=== PATIENT | female | born 1975 | race Caucasian/White ===

== ENCOUNTER 2017-01-08 19:25 | Emergency (ER) | payer SELFPAY ==
[2017-01-08] MEDS ORDERED: Ondansetron 4 MG Tab.DIS PO PRN (20:07)
--- NOTE | 2017-01-08 20:11 | EDM.PDOC ---
ED HPI GENERAL MEDICAL PROBLEM - General Chief Complaint: Abdominal Pain Stated Complaint: SIDE PAIN Time Seen by Provider: 01/08/17 19:59 Source of Information: Reports: Patient, RN Notes Reviewed History Limitations: Reports: No Limitations - History of Present Illness INITIAL COMMENTS - FREE TEXT/NARRATIVE: 41-year-old female presents emergency department day complaint of abdominal pain predominately in the right upper quadrant she's been dealing with this pain on and off for the last 2 months recently had acute appendicitis 2 months ago. She states the pain usually comes and goes it is sharp and stabbing in nature we'll wax and wane however this evening the pain has progressed to the point she is now nausea and vomiting unable to keep pills down. Denies any shortness of breath no other GI symptomatology still still passing gas denies fevers Right Abdominal Pain Score (Numeric/FACES): 8 - Related Data Allergies Allergy/AdvReac Type Severity Reaction Status Date / Time No Known Allergies Allergy Verified 01/08/17 19:51 Home Meds: Home Meds NK [No Known Home Meds] 01/08/17 [History] Past Medical History [employer] History: Reports: Spontaneous - Past Surgical History GI Surgical History: Reports: Appendectomy Social & Family History - Tobacco Use Smoking Status *Q: Never Smoker - Caffeine Use Caffeine Use: Reports: Soda - Recreational Drug Use Recreational Drug Use: No ED ROS GENERAL - Review of Systems Review Of Systems: See Below Constitutional: Denies: Fever, Chills HEENT: Reports: No Symptoms Respiratory: Reports: No Symptoms Cardiovascular: Reports: No Symptoms GI/Abdominal: Reports: Abdominal Pain, Nausea, Vomiting : Reports: Flank Pain Musculoskeletal: Reports: No Symptoms Skin: Reports: No Symptoms Neurological: Reports: No Symptoms ED EXAM, GI/ABD - Physical Exam Exam: See Below Text/Narrative:: General: Female, not in any distress, alert and oriented x3 HEENT: head is atraumatic normocephalic, eyes pupils equal round reactive to light, sclera clear no conjunctivitis appreciated. Ears tympanic membranes clear and mojica landmarks and light reflex are present bilaterally canals are clear. Nose no septal deviation, nares are clear, no blood present. Mouth mucosa is moist and pink no erythema or exudate noted in soft palate, tongue is midline uvula is midline, dentition is intact. Neck: Supple no thyromegaly no tracheal deviation. Nodes: Cervical nodes subclavicular nodes nontender no palpable lymphadenopathy noted. Lungs: clear to auscultation bilaterally with symmetrical respirations, no adventitious noise appreciated. CV: Regular rate and rhythm S1 and S2 appreciated no murmurs rubs or gallops noted. Abdomen: Soft, tender right upper quadrant, no palpable masses or organomegaly appreciated, no distention no guarding bowel sounds are present, . Neuro: Cranial nerves II through XII grossly intact Skin: Warm and dry, intact Extremities: No lower extremity edema appreciated, Course - Vital Signs Last Recorded V/S: Last Vital Signs Temp 97.0 F 01/08/17 19:46 Pulse 91 01/08/17 19:46 Resp 18 01/08/17 19:46 BP 137/54 L 01/08/17 19:46 Pulse Ox 99 01/08/17 19:46 - Orders/Labs/Meds Orders: Active Orders 24 hr Category Date Time Status Ondansetron [Zofran ODT] Med 01/08/17 20:07 Active 4 mg PO ONETIME PRN ED Antiemetic Medication Reflex [OM.PC] Click to Edit Oth 01/08/17 20:07 Ordered Medication Orders Ondansetron HCl (Zofran Odt) 4 mg PO ONETIME PRN PRN Reason: Nausea/Vomiting Last Admin: 01/08/17 20:15 Dose: 4 mg Labs: Laboratory Tests 01/08/17 01/08/17 01/08/17 Range/Units 20:20 20:20 20:20 WBC 4.2 L (4.5-11.0) K/uL RBC 4.48 (3.30-5.50) M/uL Hgb 13.7 (12.0-15.0) g/dL Hct 41.4 (36.0-48.0) % MCV 92 (80-98) fL MCH 31 (27-31) pg MCHC 33 (32-36) % Plt Count 280 (150-400) K/uL Neut % (Auto) 45 (36-66) % Lymph % (Auto) 43 (24-44) % [place] % (Auto) 9 H (2-6) % Eos % (Auto) 1 L (2-4) % Baso % (Auto) 1 (0-1) % Sodium 146 (140-148) mmol/L Potassium 3.6 (3.6-5.2) mmol/L Chloride 111 H (100-108) mmol/L Carbon Dioxide 27 (21-32) mmol/L Anion Gap 11.6 (5.0-14.0) mmol/L BUN 11 (7-18) mg/dL Creatinine 0.8 (0.6-1.0) mg/dL Est Cr Clr Drug Dosing TNP Estimated GFR (MDRD) > 60 (>60) Glucose 91 (74-106) mg/dL Lactic Acid 1.9 (0.4-2.0) mmol/L Calcium 8.3 L (8.5-10.1) mg/dL Total Bilirubin 0.1 L (0.2-1.0) mg/dL AST 18 (15-37) U/L ALT 28 (12-78) U/L Alkaline Phosphatase 78 (46-116) U/L Troponin I < 0.017 (0.000-0.056) ng/mL Total Protein 7.6 (6.4-8.2) g/dL Albumin 3.7 (3.4-5.0) g/dL Globulin 3.9 H (2.3-3.5) g/dL Albumin/Globulin Ratio 1.0 L (1.2-2.2) Urine Color Urine Appearance Urine pH (4.5-8.0) Ur Specific [place] (1.008-1.030) Urine Protein (NEGATIVE) mg/dL Urine Glucose (UA) (NEGATIVE) mg/dL Urine Ketones (NEGATIVE) mg/dL Urine Occult Blood (NEGATIVE) Urine Nitrite (NEGATIVE) Urine Bilirubin (NEGATIVE) Urine Urobilinogen (NORMAL) mg/dL Ur Leukocyte Esterase (NEGATIVE) Urine RBC (0-5) Urine WBC (0-5) Ur Epithelial Cells Amorphous Sediment Urine Bacteria Urine Mucus Urine HCG, Qual 01/08/17 01/08/17 Range/Units 21:10 21:10 WBC (4.5-11.0) K/uL RBC (3.30-5.50) M/uL Hgb (12.0-15.0) g/dL Hct (36.0-48.0) % MCV (80-98) fL MCH (27-31) pg MCHC (32-36) % Plt Count (150-400) K/uL Neut % (Auto) (36-66) % Lymph % (Auto) (24-44) % [place] % (Auto) (2-6) % Eos % (Auto) (2-4) % Baso % (Auto) (0-1) % Sodium (140-148) mmol/L Potassium (3.6-5.2) mmol/L Chloride (100-108) mmol/L Carbon Dioxide (21-32) mmol/L Anion Gap (5.0-14.0) mmol/L BUN (7-18) mg/dL Creatinine (0.6-1.0) mg/dL Est Cr Clr Drug Dosing Estimated GFR (MDRD) (>60) Glucose (74-106) mg/dL Lactic Acid (0.4-2.0) mmol/L Calcium (8.5-10.1) mg/dL Total Bilirubin (0.2-1.0) mg/dL AST (15-37) U/L ALT (12-78) U/L Alkaline Phosphatase (46-116) U/L Troponin I (0.000-0.056) ng/mL Total Protein (6.4-8.2) g/dL Albumin (3.4-5.0) g/dL Globulin (2.3-3.5) g/dL Albumin/Globulin Ratio (1.2-2.2) Urine Color Yellow Urine Appearance Clear Urine pH 5.0 (4.5-8.0) Ur Specific [place] 1.020 (1.008-1.030) Urine Protein Negative (NEGATIVE) mg/dL Urine Glucose (UA) Normal (NEGATIVE) mg/dL Urine Ketones Negative (NEGATIVE) mg/dL Urine Occult Blood Negative (NEGATIVE) Urine Nitrite Negative (NEGATIVE) Urine Bilirubin Negative (NEGATIVE) Urine Urobilinogen Normal (NORMAL) mg/dL Ur Leukocyte Esterase Negative (NEGATIVE) Urine RBC 0-5 (0-5) Urine WBC 0-5 (0-5) Ur Epithelial Cells Moderate Amorphous Sediment Few Urine Bacteria Rare Urine Mucus Few Urine HCG, Qual Negative Meds: Medications Generic Name Dose Route Start Last Admin Trade Name Freq PRN Reason Stop Dose Admin Ondansetron HCl 4 mg 01/08/17 20:07 01/08/17 20:15 Zofran Odt PO 4 mg ONETIME PRN Administration Nausea/Vomiting Departure - Departure Time of Disposition: 21:41 Disposition: Home, Self-Care 01 Condition: Good Clinical Impression: Right upper quadrant pain - Discharge Information Forms: ED Department Discharge Additional Instructions: Continue to the Zofran as needed for nausea and vomiting symptoms, try the muscle relaxant for any muscle spasms, please establish with primary care provider next week for further evaluation - My Orders Last 24 Hours: My Active Orders 01/08/17 20:07 Ondansetron [Zofran ODT] 4 mg PO ONETIME PRN ED Antiemetic Medication Reflex [OM.PC] Click to Edit - Assessment/Plan Last 24 Hours: My Active Orders 01/08/17 20:07 Ondansetron [Zofran ODT] 4 mg PO ONETIME PRN ED Antiemetic Medication Reflex [OM.PC] Click to Edit Plan: Assessment Acuity = acute Site and laterality = right upper quadrant pain Etiology = unclear etiology suspicious for gallbladder dysfunction Manifestations = nausea and vomiting Location of injury = Home Lab values = CBC, CMP, urinalysis all within normal limits Plan Did review blood work with her she had good relief Zofran provided talked about further image studies however she is recently had 2 CAT scans within the last 2 months elected to hold off on any image studies at this time she is going try and establish with primary care provider in the clinic this upcoming week consider HIDA scan Patient was in agreement with the plan all questions were answered, they were instructed to return to the emergency department or call for worsening symptoms. This note was dictated using [employer] voice recognition software please call with any questions.
[2017-01-08 21:51] VITALS: BP 97/71
== END 2017-01-08 21:49 | disposition home or self-care (01) ==
LOC: JP.ED 19:25
DX: R10.11 Right upper quadrant pain (principal); Z90.49 Acquired absence of other specified parts of digestive tract
CPT/HCPCS: 36415; 80053; 81001; 81025; 83605; 84484; 85025; 99284; A9270